=== PATIENT | male | born 1970 | race Caucasian/White ===

== ENCOUNTER 2019-07-18 07:19 | Day surgery (SDC) | payer BC ==
--- NOTE | 2019-07-07 08:37 | HP ---
CC: Dr. Matthew Steward * PREOPERATIVE HISTORY AND PHYSICAL: DATE OF ADMISSION/SURGERY: 07/18/19 This patient is scheduled for same-day surgery admission by Dr. Caballero on 07/18/19. DATE OF PREOPERATIVE HISTORY AND PHYSICAL EXAMINATION: , 07/06/19 ATTENDING SURGEON: Dr. Rey Caballero * (dictated by Ivon Gordon NP). CHIEF COMPLAINT: Umbilical hernia. HISTORY OF PRESENT ILLNESS: The patient is a 49-year-old male with a history of an umbilical "lump" for 2 to 3 years. He is currently weight training and occasionally has pain with lifting. He denies any signs or symptoms to suggest incarceration or strangulation. He denies any dysuria or change in bowel habits. He saw his primary care provider, Dr. Steward and was referred for surgical repair. Dr. Caballero examined the patient and noted a 3 cm, reducible, fat- containing umbilical hernia that was minimally tender. Dr. Caballero has therefore recommended open umbilical hernia repair with mesh as the same-day surgery procedure with intravenous sedation and local anesthetic. Dr. Caballero described the nature of the surgical procedure, the rationale for the procedure , the relevant risks, benefits and alternatives and today, I reviewed the expected postoperative care and recovery. The patient has had a chance to ask questions and stated that he understands the information and he is satisfied with the answers given to his questions. He will sign surgical consent on the day of surgery. PAST MEDICAL HISTORY: Obesity. PAST SURGICAL HISTORY: Hernia repair as an infant. MEDICATIONS: Centrum MultiVit 1 tablet daily. ALLERGIES: No known drug allergies. REVIEW OF SYSTEMS: A 14-point detailed review of systems that was negative other than as mentioned in history of present illness. 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 He quit smoking in 2001. He exercises regularly and power lifts, although recently he has cut back on that. He denies the use of alcohol or other substances. FAMILY HISTORY: Mother with a history of deep vein thrombosis recently. No other significant family medical history. PHYSICAL EXAMINATION GENERAL SURVEY: The patient is a 49-year-old male, obese, well developed, in no acute distress. VITAL SIGNS: Height 70 inches, weight 240 pounds, body mass index 34.4, blood pressure 118/70, pulse 80 and regular, respiratory rate 16, temperature 97.6 tympanic. HEENT: Benign. NECK: Supple. No cervical lymphadenopathy. BACK: No CVA tenderness. LUNGS: Breath sounds bilaterally clear and equal. HEART: Regular rate and rhythm. No murmurs or rubs appreciated. ABDOMEN: Obese, active bowel sounds. Obvious umbilical hernia that is approximately 3 cm and is reducible and minimally tender and most likely fat containing. GENITALIA: Deferred. RECTAL: Deferred. EXTREMITIES: Warm without edema or skin ulceration. NEUROLOGIC: Alert and oriented x3. Steady gait. SKIN: Warm, dry, intact. IMPRESSION: Umbilical hernia. PLAN: Same-day surgery admission to Dr. Caballero' service on 07/18/19 for open umbilical hernia repair with mesh. JACKIE GORDON, THERESA [id number]/[facility] #: [id number] AIRAM
[~2019-07-18 07:19] MED LIST: Buffered Lidocaine 1% SYRIN* 1 ML/SYRINGE INTRADERM ONE; Famotidine IV* 10 MG/ML 2 ML (20 mg) IV ONE; Lactated Ringers 1000 ML Bag* 1,000 ML IV SCH
[2019-07-18] MEDS ORDERED: Famotidine IV* 10 MG/ML 2 ML (20 mg) ONE (07:28)
[2019-07-18] MEDS ORDERED: ceFAZolin 2 GM PREMIX in ORs 2 GM/50 ML BAG ONE (07:28)
[2019-07-18] MEDS ORDERED: fentaNYL* 50 MCG/ML 2 ML VIAL (100 MCG VIAL) ONE ×2 (08:57→11:28)
[2019-07-18] MEDS ORDERED: Lidocaine 2% PF * 5 ML VIAL ONE (08:57)
[2019-07-18] MEDS ORDERED: Ondansetron INJ* 2 MG/ML VIAL ONE (08:57)
[2019-07-18] MEDS ORDERED: Midazolam* 1 MG/ML 10 ML VIAL (10 MG) ONE (08:57)
[2019-07-18] MEDS ORDERED: Propofol* 10 MG/ML 20 ML BTL ONE ×2 (08:57→09:46)
[2019-07-18] MEDS ORDERED: Dexamethasone IV* 4 MG/ML 1 ML (4 MG) ONE (08:57)
[2019-07-18] MEDS ORDERED: Ketorolac INJ* 30 MG/ML 1 ML VIAL ONE (08:57)
[2019-07-18] MEDS ORDERED: KETAMINE HCL* 50 MG/ML 10 ML VIAL ONE (08:57)
[2019-07-18] MEDS ORDERED: Lidocaine 1% INJ* 10 MG/ML 30 ML SDV ONE (09:09)
[2019-07-18] MEDS ORDERED: Bupivacaine 0.25% EPI 200,000* 30 ML SDV ONE (09:09)
[2019-07-18] MEDS ORDERED: fentaNYL* 50 MCG/ML 2 ML VIAL (100 MCG VIAL) IV PRN (10:09)
[2019-07-18] MEDS ORDERED: Naloxone* 0.4 MG/ML 1 ML VIAL IV PRN (10:09)
[2019-07-18] MEDS ORDERED: Ondansetron INJ* 2 MG/ML VIAL IV PRN (10:09)
--- NOTE | 2019-07-18 10:31 | BRIEFOPN ---
Brief Operative/Procedure Note - Operation Details Pre-Op Diagnosis: umbilical hernia Post-Op Diagnosis: umbilical hernia Procedures: open umbilical hernia repair with mesh Surgeon(s)/Proceduralists: Ada. Assist: Kat Anesthesia: MAC. Fluids: 850 ml Crystalloid Estimated Blood Loss: <25 ml Findings: as above Specimen(s)/Culture(s) Description: none Complications: none
[2019-07-18 11:51] VITALS: BP 108/71
--- NOTE | 2019-07-19 02:49 | OP ---
CC: Matthew Steward MD * DATE OF OPERATION: 07/18/19 - [facility] DATE OF : 66 SURGEON: Rey Caballero MD. BUNDLE PACKER: None. ANESTHESIOLOGIST: Berny Nelson MD. ANESTHESIA: Local MAC. PRE-OP DIAGNOSIS: Umbilical hernia. POST-OP DIAGNOSIS: Umbilical hernia. OPERATIVE PROCEDURE: Open repair of umbilical hernia with mesh. ESTIMATED BLOOD LOSS: Minimal. IV FLUIDS: Crystalloid. SPECIMENS: None. DRAINS: None. COMPLICATIONS: None. COUNTS: Instrument, needle, and sponge count were correct. DESCRIPTION OF PROCEDURE: The patient was brought to the operating room and placed on the table supine. Sequential compression devices were placed on both lower extremities. Intravenous sedation was administered. The abdomen was prepped and draped in the usual sterile fashion. He received appropriate intravenous antibiotics and a time-out was performed. Local anesthetic was infiltrated into the skin and soft tissues prior to making the incision. Field block was created periumbilically and a curvilinear infraumbilical incision was made. Subcutaneous tissues were divided with a combination of sharp, blunt dissection and cautery. The umbilical hernia defect was to the right side of the umbilical stalk. Hernia sac was dissected off of the skin and then reduced. The umbilical stalk was divided from the anterior abdominal wall. The hernia sac was entered. The hernia measured approximately 2.5 cm in diameter. It was clean circumferentially. A Bard Ventrio large umbilical patch was used. This was placed into the peritoneal cavity and it was sutured at four points with 0 Ethibond suture and then the fascia was closed with the same suture in an interrupted [id number] fashion. Umbilical stalk was reapproximated with 3-0 Vicryl and then the wound was closed with 3-0 Vicryl for the deep dermis and 4-0 Monocryl for the skin edge. Steri-Strips and compression dressing were applied. The patient tolerated the procedure well. He was awakened and transferred to Recovery stable. [id number]/[facility] #: [id number] [facility]
== END 2019-07-18 12:18 | disposition home or self-care (01) ==
LOC: OR 07:19
PROVIDERS: ATTEND Surgery
DX: K42.9 Umbilical hernia without obstruction or gangrene (principal); E66.9 Obesity, unspecified
CPT/HCPCS: C1781; J0690; J1100; J1885; J2250; J2405; J2704; J3010